=== PATIENT | female | born 1990 | race American Indian/Alaskan Native ===

== ENCOUNTER 2020-01-12 13:58 | Emergency (ER) | payer OTHER ==
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
[2020-01-12 15:23] VITALS: BP 120/77
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
[2020-01-12] MEDS ORDERED: KETOROLAC 30 MG/1 ML INJ IM ONE (16:28)
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
== END 2020-01-12 17:15 | disposition home or self-care (01) ==
LOC: ED 13:58
DX: S16.1XXA Strain of muscle, fascia and tendon at neck level, initial encounter (principal); V49.49XA Driver injured in collision with other motor vehicles in traffic accident, initial encounter; Y93.89 Activity, other specified; Y92.89 Other specified places as the place of occurrence of the external cause; Y99.8 Other external cause status
CPT/HCPCS: 72040; 96372; 99283; J1885

== ENCOUNTER 2020-12-15 15:54 | Emergency (ER) | payer OTHER ==
[2020-12-15 16:11] VITALS: BP 136/79
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
== END 2020-12-15 17:36 | disposition home or self-care (01) ==
LOC: ED 15:54
DX: R52 Pain, unspecified (principal); Z79.899 Other long term (current) drug therapy; V49.49XA Driver injured in collision with other motor vehicles in traffic accident, initial encounter; Y92.410 Unspecified street and highway as the place of occurrence of the external cause; Y93.89 Activity, other specified; Y99.8 Other external cause status
CPT/HCPCS: 99282